=== PATIENT | male | born 1930 | race Caucasian/White ===

== ENCOUNTER 2016-09-21 06:16 | Day surgery (SDC) | payer OTHER ==
[2016-09-20 16:55] VITALS: BMI 21.9
[2016-09-21] MEDS ORDERED: SUCCINYLCHOLINE CHLORIDE 200 MG/10 ML VIAL ONE (07:35)
[2016-09-21] MEDS ORDERED: PROPOFOL 20 ML ONE (07:35)
[2016-09-21] MEDS ORDERED: VASOPRESSIN 20 UNITS/ML VIAL IV ONE (07:41)
[2016-09-21] MEDS ORDERED: METHYLENE BLUE 1% 10 MG/1 ML VIAL ONE (07:54)
[2016-09-21] MEDS ORDERED: GENTAMICIN SO4 80 MG/2 ML VIAL ONE (08:11)
[2016-09-21] MEDS ORDERED: LIDOCAINE HCL 2% (20ML MULTI-DOSE VIAL) NR ONE (08:12)
--- NOTE | 2016-09-21 08:12 | OP ---
Operative Note - Note: Pre-Operative Diagnosis: urinary incontinence failed medical therapy. CAP S/P BRACHY TX. EZRA Operation: male sling , copoplast, cysto Post-Operative Diagnosis: Same as Pre-op (FIXATED URETHRA SECONDARY TO POOR COAPTATION SEC TO RADIATION) Surgeon: Matthew Pablo Anesthesia: General Operative Report Dictated: Yes
[2016-09-21] MEDS ORDERED: GENTAMICIN SO4 80 MG/2 ML VIAL IVPB ONE (08:13)
[2016-09-21] MEDS ORDERED: ceFAZolin SODIUM 1 GM VIAL ONE (08:29)
[2016-09-21] MEDS ORDERED: ceFAZolin SODIUM 1 GM VIAL IVPB ONE (08:31)
--- NOTE | 2016-09-21 08:45 | HP ---
DATE OF ADMISSION: DATE OF DICTATION: 09/21/2016 HISTORY OF PRESENT ILLNESS: Patient is an 85-year-old male with stress urinary incontinence. Patient does have history of localized prostate cancer treated with radiation seeds as well as external beam radiation therapy 12 years ago. He has been having stress incontinence, using 4 to 6 pads a day. He denies any dysuria or hematuria. 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 Patient does have history of diabetes. He denies any other medical problems. He denies tobacco, ethanol, allergies. He denies any open surgical procedures. PHYSICAL EXAMINATION: General: Revealed a well-developed adult male in no apparent distress. Abdomen: Soft. There was no CVA tenderness. No hepatosplenomegaly was noted. Genitalia: Atraumatic. Phallus appears to be excoriated with a fungal rash secondary to chronic urinary incontinence. Testes are atrophic. Prostate is 1+, firm, benign, and nontender. Perineal sensation is present. Bulbocavernosus reflex is brisk. Saddle sensation is not diminished. LABORATORY DATA: Residual urine was 120 mL. Urinalysis revealed a specific gravity of 1015, pH 5.5, negative blood and nitrites. PLAN: Patient was given the option of an internal male urethral sling. He has accepted that. Will go for a male sling. MARTHA RYAN M.D. [id number]
[2016-09-21] MEDS ORDERED: DEXTROSE 5%-0.45% SALINE 1,000 ML IV SCH (10:15)
[2016-09-21] MEDS ORDERED: ACETAMINOPHEN INJECTION 100 ML IVPB ONE (10:51)
[2016-09-21] MEDS ORDERED: ONDANSETRON 4 MG/2 ML VIAL IVPUSH PRN (11:01)
[2016-09-21] MEDS ORDERED: HYDROmorphone HCL CARPU-JECT 1 MG/1 ML DISP.SYRIN IVPUSH PRN (11:01)
[2016-09-21] MEDS ORDERED: oxyCODONE HCL 5 MG TABLET PO PRN (11:01)
[2016-09-21] MEDS ORDERED: ACETAMINOPHEN 1000 MG/100 ML VIAL (NON FORMULARY) IVPB ONE (11:02)
[2016-09-21] MEDS ORDERED: HYDROmorphone HCL CARPU-JECT 2 MG/1 ML DISP.SYRIN IM ONE (11:15)
[2016-09-21] MEDS ORDERED: CEPHALEXIN MONOHYDRATE 500 MG CAPSULE (UD) PO SCH (12:00)
--- NOTE | 2016-09-21 13:08 | OP ---
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 OPERATIVE PROCEDURE: Insertion of a Coloplast male sling. ANESTHESIA: General. DESCRIPTION OF PROCEDURE: Under above stated anesthesia, patient was prepped and draped in the usual sterile manner. He was placed in the exaggerated dorsal lithotomy position. A perineal incision was made. This was carried down through skin and subcutaneous tissue. The rectourethralis muscles were dissected off the bulbous urethra. The penile body was then dissected off the posterior rectal wall, and an edge of 3 cm was obtained by freeing the rectum from the posterior urethra using both blunt and sharp dissection. The pubic bone on the right and left sides of the bulbous urethra was identified. The Coloplast mesh was then placed flat over the entire bulbous urethra. The lower wings were then brought out, the obturator canals on the right and left side. The upper wings of the flap were brought out suprapubically in front of the pubic bone. No. 1 Prolene sutures were then placed into the pubic bone and towards the middle of the graft and tied down snugly, thereby compressing the bulbous urethra. The Humphries catheter was placed at the meatus, and the balloon was inflated with 2 mL of saline. A water bottle at 75 cm above the patient was placed, and fluid was drained into the Humphries. On tying the Prolene sutures, the drip stops indicative of an increase in outlet resistance. Two Prolene No. 1 sutures were placed on the right pubic bone connected to the sling, and two were placed on the left pubic bone and connected to the sling. No evidence of leakage was noted. A cystoscopy was performed, and this revealed elevation of the bulbous urethra. The bladder revealed no pathology. Ureteral orifices were within normal limits with efflux of clear urine. The bladder was emptied and the scope was removed. The perineal incision was then irrigated with antibiotic solution and closed in 3 layers of 3-0 Vicryl suture ligatures. The skin was closed with iris. Pressure dressing was applied. The wound was also infiltrated with for long-term analgesia. The patient tolerated the procedure well. He returned to the recovery room in good condition. MARTHA RYAN M.D. [id number]
[2016-09-21 16:16] VITALS: BP 118/68; PULSE 77; TEMP 98.2
== END 2016-09-21 16:05 | disposition home or self-care (01) ==
LOC: JASU-SURG 06:16
PROVIDERS: ATTEND Urology
PROC: 0TSD0ZZ Reposition Urethra, Open Approach (ICD-10-PCS; principal; 2016-09-21 08:00)
DX: N39.3 Stress incontinence (female) (male) (principal); Z85.46 Personal history of malignant neoplasm of prostate
CPT/HCPCS: 87086; 94760

== ENCOUNTER 2018-12-06 13:33 | Emergency (ER) | payer OTHER ==
[2018-12-06 13:58] VITALS: TEMP 97.5; BMI 21.0
[2018-12-06] MEDS ORDERED: SODIUM CHLORIDE 1,000 ML IV STA (13:59)
--- NOTE | 2018-12-06 14:09 | PDOC ---
History of Present Illness - General Chief Complaint: Weakness Stated Complaint: WEAKNESS Time Seen by Provider: 12/06/18 14:09 History Source: Patient, Family Exam Limitations: No Limitations - History of Present Illness Initial Comments: 12/06/18 15:27 88 year old male with PMH HTN, HLD, DM, stress urinary incontinence, prostate cancer (s/p seeding), COPD, GERD BIBA to ED for increased lethargy since awaking this morning. Per family pt was awake until 0200 today with the family, was drinking ETOH (1 beer) and then took his nightly Buspirone 5 mg. Per family pt was sleeping in bed, awoke around 0400 and as he was trying to get out of bed he was unable to collateral clerk the floor and fell onto the ground. Fall was witnessed by daughter, who stated to the family that the patient did not hit his head/vomit/lose consciousness. Pt compained of low back pain, but they thought he was just tired, and so they did not bring him to the Emergency Department. Family reported that by 0100 pt was still very tired, so they decided to bring him to the Emergency Department, and upon arrival he was back to his baseline. Past History - Past Medical History Allergies/Adverse Reactions: Allergies Allergy/AdvReac Type Severity Reaction Status Date / Time No Known Drug Allergies Allergy Verified 12/06/18 13:56 Home Medications: Ambulatory Orders Sertraline HCl [Zoloft -] 100 mg PO DAILY 03/24/15 metFORMIN HCL [Metformin HCl] 1,000 mg PO BID 03/24/15 Amlodipine Besylate 5 mg PO DAILY 12/06/18 Atorvastatin Ca [Lipitor] 10 mg PO HS 12/06/18 Buspirone HCl [Buspar -] 5 mg PO BID 12/06/18 Dronabinol 5 mg PO BID 12/06/18 Ferrous Sulfate 325 mg PO TID 12/06/18 Finasteride [Proscar -] 5 mg PO DAILY 12/06/18 Latanoprost 0.005% Eye Drops [Xalatan 0.005% Eye Drops -] 1 drop OU HS 12/06/18 Omeprazole/Sodium Bicarbonate [Omeprazole-Bicarb 40-1,100 Cap] 40 - 1,100 cap PO DAILY 12/06/18 Anemia: No Asthma: No Cancer: No Cardiac Disorders: (DENIES STENT) CVA: No COPD: No CHF: No Dementia: No Diabetes: Yes GI Disorders: No Disorders: No HTN: Yes Hypercholesterolemia: Yes Liver Disease: No Psychiatric Problems: Yes (Anxiety) Seizures: No Thyroid Disease: No - Surgical History Abdominal Surgery: Yes (HERNIA REPAIR) Appendectomy: No Cardiac Surgery: No Cholecystectomy: No Lung Surgery: No Neurologic Surgery: No Orthopedic Surgery: Yes (LEFT KNEE) - Suicide/Smoking/Psychosocial Hx Smoking History: Never smoked Have you smoked in the past 12 months: No Information on smoking cessation initiated: No Hx Alcohol Use: No Drug/Substance Use Hx: No Substance Use Type: None Hx Substance Use Treatment: No Review of Systems - Review of Systems Able to Perform ROS?: Yes Comments:: 12/06/18 15:16 General: denied fever, chills, generalized weakness. HEENT: denied sore throat, rhinorrhea, ear pain. Heart: denied chest pain, palpitations, syncope, diaphoresis. Respiratory: denied shortness of breath, cough, sputum production, hemoptysis. Abdomen: denied abdominal pain, nausea, vomiting, diarrhea, constipation, blood in stool. : denied dysuria, increased urinary frequency, hematuria, urinary incontinence , flank pain. Back: admitted to back pain. Musculoskeletal: denied joint pain, muscle pain, joint swelling. Neurological: admitted to AMS. denied headache, dizziness, numbness, tingling, weakness. Skin: denied rash, laceration, abrasion. *Physical Exam - Vital Signs Last Vital Signs Temp Pulse Resp BP Pulse Ox 97.5 F L 68 17 135/65 98 12/06/18 13:49 12/06/18 13:49 12/06/18 13:49 12/06/18 13:49 12/06/18 13:49 - Physical Exam Comments: 12/06/18 15:17 Constitutional: Well-nourished, Well-developed, appearing stated age. HEENT: head is normocephalic, atraumatic. EOMI. PERRLA. no scalp hematoma. no racoon eyes, no garay sign. Neck: supple. Full ROM. no midline c-spine tenderness. Heart: systolic murmur. regular rhythm. Lungs: clear to auscultation bilaterally. no crackles, rhonchi or wheezing. no stridor. Abdomen: soft, nontender. normal bowel sounds. no rebound, guarding, masses. Back: no midline T-spine or L-spine tenderness to palpation. Extremities: peripheral pulses intact. no lower extremity edema. Neurological: CN 2-12 grossly intact. moves all four extremities. Psych: awake, alert, oriented x3. follows commands. answers questions appropriately. ED Treatment Course - LABORATORY CBC & Chemistry Diagram: 12/06/18 14:10 12/06/18 14:10 Medical Decision Making - Medical Decision Making 88 year old male with above PMH BIBA to ED for increased lethargy/AMS - which has since resolved - s/p drinking ETOH, staying up until 0200 today and taking Buspirone 5 mg. Pt received 1L normal saline en route via EMS. Initial Vital Signs Temp Pulse Resp BP Pulse Ox 97.5 F L 68 17 135/65 98 12/06/18 13:49 12/06/18 13:49 12/06/18 13:49 12/06/18 13:49 12/06/18 13:49 Afebrile. No tachycardia. No tachypnea. No hypotension. Mild hypertension. No hypoxia on room air. Labs ordered: CBC, CMP, troponin Imaging ordered: CXR, pelvis XR, lumbar spine XR, CT noncontrast Medications ordered: none EKG performed at 1347: rate 67, regular rhythm, normal axis, 1st degree AV block , QTc 420, no acute ST changes. CBC WBC 7.8 K/mm3 (4.0-10.0) 12/06/18 14:10 RBC 4.63 M/mm3 (4.00-5.60) 12/06/18 14:10 Hgb 12.1 GM/dL (11.7-16.9) 12/06/18 14:10 Hct 36.6 % (35.4-49) 12/06/18 14:10 MCV 79.2 fl (80-96) L 12/06/18 14:10 MCH 26.2 pg (25.7-33.7) 12/06/18 14:10 MCHC 33.1 g/dl (32.0-35.9) 12/06/18 14:10 RDW 14.9 % (11.9-15.9) 12/06/18 14:10 Plt Count 198 K/MM3 (134-434) 12/06/18 14:10 MPV 6.3 fl (7.5-11.1) L 12/06/18 14:10 Absolute Neuts (auto) 5.7 K/mm3 (1.5-8.0) 12/06/18 14:10 Neutrophils % 72.4 % (42.8-82.8) 12/06/18 14:10 Lymphocytes % 15.3 % (8-40) 12/06/18 14:10 Monocytes % 9.8 % (3.8-10.2) 12/06/18 14:10 Eosinophils % 2.2 % (0-4.5) 12/06/18 14:10 Basophils % 0.3 % (0-2.0) 12/06/18 14:10 Nucleated RBC % 0 % (0-0) 12/06/18 14:10 No leukocytosis. No anemia. CMP Sodium 143 mmol/L (136-145) 12/06/18 14:10 Potassium 4.2 mmol/L (3.5-5.1) 12/06/18 14:10 Chloride 113 mmol/L (98-107) H 12/06/18 14:10 Carbon Dioxide 23 mmol/L (21-32) 12/06/18 14:10 Anion Gap 6 MMOL/L (8-16) L 12/06/18 14:10 BUN 19.6 mg/dL (7-18) H 12/06/18 14:10 Creatinine 0.8 mg/dL (0.55-1.3) 12/06/18 14:10 Est GFR (CKD-EPI)AfAm 93.09 12/06/18 14:10 Est GFR (CKD-EPI)NonAf 80.32 12/06/18 14:10 Random Glucose 120 mg/dL (74-106) H 12/06/18 14:10 Calcium 8.1 mg/dL (8.5-10.1) L 12/06/18 14:10 Magnesium 1.9 mg/dL (1.8-2.4) 12/06/18 14:10 Total Bilirubin 0.3 mg/dL (0.2-1) 12/06/18 14:10 AST 18 U/L (15-37) 12/06/18 14:10 ALT 27 U/L (13-61) 12/06/18 14:10 Alkaline Phosphatase 73 U/L (45-117) 12/06/18 14:10 Creatine Kinase 91 U/L (26-308) 12/06/18 14:10 Troponin I < 0.02 ng/ml (0.00-0.05) 12/06/18 14:10 Total Protein 6.6 g/dl (6.4-8.2) 12/06/18 14:10 Albumin 3.4 g/dl (3.4-5.0) 12/06/18 14:10 No electrolyte abnormalities. No NONI. No transaminitis. Troponin wnl. 12/06/18 16:[address] Schultz's view: no obvious rib fractures. no infiltrate. no large pneumothorax. -Pending official report Pelvis XR my and Dr. Schultz's view: no fracture. no dislocation. bone demineralization. bone spurs. -Pending official report Lumbar spine XR mr and Dr. Schultz's view: no fracture. no dislocation. -Pending official report 12/06/18 18:32 CT head noncontrast showed no acute pathology. Pt back at baseline per family. Pt discharged. 12/08/18 06:39 Follow up: Official CXR, pelvis, and lumbar spine report: Single view AP portable chest Trauma with fall Degenerative changes in the shoulder No rib fracture or pneumothorax No infiltrate, mass or effusion in the lungs Impression: No infiltrates or edema in the lungs, no acute changes noted Single view pelvis Trauma with fall No fracture, dislocation or focal bony lesion Mild degenerative change hip joints Impression: No evidence of acute fracture or dislocation in the pelvis Lumbar spine 3 views Trauma with fall Tiny punctate calcifications overlie the left kidney, correlate for nonobstructive nephrolithiasis or obstructive lithiasis in the right clinical setting, follow- up with ultrasound or CT if clinically warranted. Retained fecal material in the colon Atherosclerotic calcifications aorta with no spondylolysis or spondylolisthesis. No definite acute compression fracture or bone destruction with normal sacrum and sacrococcygeal segments Impression: No definite acute compression fracture, if clinically symptomatic consider follow-up CT imaging for complete assessment. Reported By: Hernando Mcdonald MD 12/07/18 1304 *DC/Admit/Observation/Transfer Diagnosis at time of Disposition: Fall - Discharge Dispostion Disposition: HOME Condition at time of disposition: Improved Decision to Admit order: No - Referrals Referrals: Sang Martínez MD [Primary Care Provider] - - Patient Instructions Additional Instructions: You were seen today for a fall. Your X-rays showed no fractures. Your head CT was normal. Your lab work was normal. Do not drink alcohol. Follow up with your primary care doctor within 3 days. Your care is not complete until you follow up. Bring all paperwork given to you today to your appointment. Return to the Emergency Department for change in mental status, weakness, numbness, tingling, changes to speech, fever, chest pain, shortness of breath, increasing abdominal pain, vomiting or any other new, worsening or concerning symptoms. - Post Discharge Activity
[2018-12-06 14:26] LABS: BASO % 0.3 % (0-2.0); EOS % 2.2 % (0-4.5); HEMATOCRIT 36.6 % (35.4-49); HEMOGLOBIN 12.1 GM/dL (11.7-16.9); LYMPH % 15.3 % (8-40); MCH 26.2 pg (25.7-33.7); MCHC 33.1 g/dl (32.0-35.9); MEAN CELL VOLUME 79.2 fl (80-96); MEAN PLT VOLUME 6.3 fl (7.5-11.1); MONO % 9.8 % (3.8-10.2); NEUT % 72.4 % (42.8-82.8); PLATELET COUNT 198 K/MM3 (134-434); RBC 4.63 M/mm3 (4.00-5.60); RDW 14.9 % (11.9-15.9); WHITE BLOOD COUNT 7.8 K/mm3 (4.0-10.0)
[2018-12-06 14:46] LABS: ALBUMIN 3.4 g/dl (3.4-5.0); ALK PHOS 73 U/L (45-117); ANION GAP 6 MMOL/L (8-16); BILIRUBIN,TOTAL 0.3 mg/dL (0.2-1); BLOOD UREA NITROGEN 19.6 mg/dL (7-18); CALCIUM 8.1 mg/dL (8.5-10.1); CHLORIDE 113 mmol/L (98-107); CO2 23 mmol/L (21-32); CREATININE 0.8 mg/dL (0.55-1.3); GLUCOSE,RANDOM 120 mg/dL (74-106); MAGNESIUM 1.9 mg/dL (1.8-2.4); POTASSIUM 4.2 mmol/L (3.5-5.1); SGOT/AST 18 U/L (15-37); SGPT/ALT 27 U/L (13-61); SODIUM 143 mmol/L (136-145); TOT PROT 6.6 g/dl (6.4-8.2)
[2018-12-06] MEDS ORDERED: ACETAMINOPHEN 325 MG TABLET (FP) PO ONE (16:27)
[2018-12-06] MEDS ORDERED: ACETAMINOPHEN 325 MG TABLET (FP) ONE (16:35)
[2018-12-06 16:42] VITALS: BP 149/71; PULSE 78
--- NOTE | 2018-12-06 16:57 | PDOC ---
Documentation entered by Shira Atkins SCRIBE, acting as scribe for April Schultz MD. April Schultz MD: This documentation has been prepared by the Milly clement Mackenzie, SCRIBE, under my direction and personally reviewed by me in its entirety. I confirm that the documentation accurately reflects all work , treatment, procedures, and medical decision making performed by me. Attending Attestation - Resident Resident Name: Mary Pillai - ED Attending Attestation I have performed the following: I have examined & evaluated the patient, The case was reviewed & discussed with the resident, I agree w/resident's findings & plan - HPI HPI: Patient is an 88 year old male with a significant past medical history of DM, HLD, HTN, prostate cancer S/P seeding, GERD, COPD, and stress urinary incontinence came in via EMS presenting to the ED with increased lethargy since this morning. Patients family states patient was up until 2AM this morning drinking alcohol with family when he took 5mg of his Buspirone after having approximately 1 beer. Patients family states around 4AM patient woke up, struggled to get out of bed and fell on the floor. Patients daughter states witnessing the fall and denies any strike to the head, LOC, or vomiting. Patient has since been tired all day prompting family to bring him in today. Patient also notes left lower back pain and despite feeling tired earlier today upon arrival he feels awake and attentive. Denies fever, chills, chest pain, SOB, palpitation, dizziness,N, V, D, abdominal pain, bladder and bowel problems, leg swelling, No sick contacts or travel. No new changes in medications. Allergies: NKDA Past Medical History: As per resident note Social history: Lives with family. Social ETOH use. No tobacco or drug use. Surgical history: As per resident note. Meds: as documented in EMR PMD: Dr. Martínez 12/06/18 16:51 - Physicial Exam PE: 12/06/18 16:59 Agree with the resident's HPI and PE as documented in the electronic medical record. GCS 15, NAD, well appearing, EOMI, PERRL, nl conjunctiva, anicteric; neck supple. lungs clear, RRR, soft murmur, abdomen soft nontender. Back nontender. COVARRUBIAS x4, no focal neuro deficits. No peripheral edema. normal color for ethnicity , WWP. gait stable, ambulatory. 12/06/18 18:53 - Medical Decision Making 12/06/18 16:58 See HPI for details. Prior notes reviewed, including admissions, discharges and consultations. Vital signs reviewed, wnl. Trauma ddx: ICH, SDH/ EDH, C spine injury/strain, extremity sprain/fracture, pelvis fracture. MSK contusion, msk spasms. Rib fractures. Clinically doubt Intra abdominal and thoracic injuries/bleed extremity xray, lumbar xray with normal alignment, degenerative changes, no acute fx or mal-alignment. pelvis with degenerative bony deformities, no acute fx or dislocation of hip. 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 analgesia ambulatory, neuro intact, well appearing, no prodromal sx, asymptomatic and comfortable with discharge. no pain or symptoms cautioned on medication and alcohol side effect and sedating risk, fall risk. avoid drinking and taking certain meds for polypharmacy effects. no urinary sx to suggest infection. Pt to be discharged in stable condition. Patient and family made aware of clinical impression, treatment recommendations and disposition plan, return precautions discussed (including but not limited to new or persistent/worsening symptoms, pain, fevers, or signs of infection, chest pain, respiratory distress , inability to tolerate oral intake, dehydration, syncope, or neurologic changes ). Follow up with PMD follow up information provided, take medications as instructed for duration of time. continue with supportive care, avoid triggers and precipitants. All questions answered to patient's satisfaction and expressed understanding and comfort with this. At the time of discharge, the patient is alert, clinically improved, tolerating po and verbalizes understanding of instructions, satisfied with the care received and felt comfortable with the plan. Patient does not suffer from an acute life- threatening medical condition at this time and is safe for outpatient follow- up. 12/06/18 17:39 12/06/18 18:53 Heart Score/ECG Review #1 ECG reviewed & interpreted by me at: 13:45 General ECG Interpretation: Sinus Rhythm, Normal Rate, Normal Intervals, No acute ischemic changes Compared to previous ECG there are: No significant change 12/06/18 16:57 EKG normal sinus rhythm at 67 bpm, 1st degree AV block, narrow QRS, ST and T wave segments and morphology normal.
--- NOTE | 2018-12-07 13:13 | EKG ---
Test Reason : Blood Pressure : / mmHG Vent. Rate : 067 BPM Atrial Rate : 067 BPM P-R Int : 234 ms QRS Dur : 088 ms QT Int : 398 ms P-R-T Axes : 057 045 058 degrees QTc Int : 420 ms SINUS RHYTHM WITH 1ST DEGREE A-V BLOCK OTHERWISE NORMAL ECG WHEN COMPARED WITH ECG OF 01-MAR-2016 12:18, [place] INTERVAL HAS INCREASED Confirmed by FRANCISCO DELANEY MD ([id number]) on 12/07/2018 1:12:32 PM Referred By: Confirmed By:FRANCISCO DELANEY MD
== END 2018-12-06 19:22 | disposition home or self-care (01) ==
LOC: JER 13:33
DX: M54.5 Low back pain (principal); I10 Essential (primary) hypertension; E78.5 Hyperlipidemia, unspecified; E11.9 Type 2 diabetes mellitus without complications; Z79.84 Long term (current) use of oral hypoglycemic drugs; J44.9 Chronic obstructive pulmonary disease, unspecified; K21.9 Gastro-esophageal reflux disease without esophagitis; F41.9 Anxiety disorder, unspecified; Z85.46 Personal history of malignant neoplasm of prostate
CPT/HCPCS: 36415; 70450-TC; 71045-TC-FY; 72100-TC-FY; 72170-TC-FY; 80053; 82550; 83735; 84484; 85025; 93005; 93010; 99282-25; J7030

== ENCOUNTER 2020-03-27 18:18 | Emergency (ER) | payer OTHER ==
[2020-03-27 18:32] VITALS: TEMP 99.2; BMI 18.8
--- OUTSIDE RECORDS SUMMARY | 2020-03-27 18:36 | XMS ---
:1930 Author Organization [facility] Care Team Providers Name Role Phone [facility], MHAW9 Unavailable Unavailable PATRICIA YOUNG Unavailable Unavailable Jerald Vazquez Unavailable [phone] ARANZA NAILS Unavailable Unavailable Randolph-David Alta Unavailable [phone] Randolph-Hernandez, Lata Unavailable [phone] Re-disclosure Warning The records that you are about to access may contain information from federally- assisted alcohol or drug abuse programs. If such information is present, then the following federally mandated warning applies: This information has been disclosed to you from records protected by federal confidentiality rules (42 CFR part 2). The federal rules prohibit you from making any further disclosure of this information unless further disclosure is expressly permitted by the written consent of the person to whom it pertains or as otherwise permitted by 42 CFR part 2. A general authorization for the release of medical or other information is NOT sufficient for this purpose. The Federal rules restrict any use of the information to criminally investigate or prosecute any alcohol or drug abuse patient.The records that you are about to access may contain highly sensitive health information, the redisclosure of which is protected by Article 27-F of the [place] State Public Health law. If you continue you may haveaccess to information: Regarding HIV / AIDS; Provided by facilities licensed or operated by the [facility] Office of Mental Health; or Provided by the [facility] Office for People With Developmental Disabilities. If such information is present, then the following [facility] mandated warning applies: This information has been disclosed to you from confidential records which are protected by state law. State law prohibits you from making any further disclosure of this information without the specific written consent of the person to whom it pertains, or as otherwise permitted by law. Any unauthorized further disclosure in violation of state law may result in a fine or group home sentence or both. A general authorization for the release of medical or other information is NOT sufficient authorization for further disclosure. Encounters Encounter Providers Location Date Indications Data Source(s ) Outpatient Attender: PATRICIA Henriquez 03/08/2020 [facility] 09:56:00 AM Tara Menaitter: PATRICIA GOMEZReferrer: PATRICIA GOMEZ Outpatient Attender: PATRICIA Henriquez 01/26/2020 [facility] 08:07:00 AM Tara Menaitter: PATRICIA GOMEZReferrer: PATRICIA GOMEZ Outpatient Attender: MHAW9 08/04/2019 [facility] ([facility] 01:06:57 PM [facility] elisabeth) EST Patient admitted. Attender: [facility] 07/09/2019 [place] [facility]12[facility] 05:12:00 PM EST Attender: [facility] 06/25/2019 [place] ([facility] 09:16:00 AM EST [facility] sephs Medical 06/25/2019 [facility]) 09:16:00 AM EST Outpatient Attender: ARANZA Henriquez 06/23/2019 Anshul CHATMANAdmitter: ARANZA 09:12:00 AM EST [facility] LANDON CHATMANReferrer: ARANZA CHATMAN Attender: Jerald [facility] 06/23/2019 [place] ([facility] 09:12:00 AM EST [facility] 06/23/2019 [facility]) 09:12:00 AM EST 06/23/2019 Wes 12:00:00 AM EST Medical C enter Attender: [facility] 04/13/2019 [place] ([facility] 11:39:00 AM EDT - [facility] 04/13/2019 [place]) 11:39:00 AM EDT Attender: [facility] 02/23/2019 [place] ([facility] 11:04:00 AM EDT [facility] 02/23/2019 [facility]) 11:04:00 AM EDT Medications Medication Brand Start Product Dose Route Administrative Pharmacy [facility] Indications Reaction Description Data Name Date Form Instructions Instructions Source(s) Sertraline Zoloft .00 ORAL active Sertrali ne NEXTGEN 50 MG Oral 50 mg 2019 {tbl} 50 MG Oral ( [facility] Tablet tablet 12:00: Tablet Wes [Zoloft] 00 AM [Zoloft] Medica l Zoloft 50 [facility]) mg tablet Sertraline Zoloft ORAL complet Sertral ine NEXTGEN 100 MG Oral 100 mg 2019 {tbl} ed 100 MG Ora l ([facility] Tablet tablet 12:00: Tablet Wes [Zoloft] 00 AM [Zoloft] Medica l Zoloft 100 [facility] Center) mg tablet Medication administered onsite buspirone buspirone 5 06/25/2019 1 {tbl} ORAL active take 1 NEXTGEN hydrochloride 5 mg tablet 12:00:00 AM tablet by ([facility] MG Oral Tablet EST oral route Wes buspirone 5 mg 2 times Me dical tablet every day Center) for anxiety Sertraline 100 Zoloft 100 04/13/2019 1 {tbl} ORAL completed Sertraline NEXTGEN MG Oral Tablet mg tablet 12:00:00 AM 100 MG Oral (Saint [Zoloft] Zoloft EDT Tablet Cele sephs 100 mg tablet [Zoloft] Ne dical Center) buspirone buspirone 5 04/13/2019 1 {tbl} ORAL completed take 1 NEXTGEN hydrochloride 5 mg tablet 12:00:00 AM tablet by ([facility] MG Oral Tablet EDT oral route Wes buspirone 5 mg 2 times Me dical tablet every day [facility]) for anxiety Sertraline 100 Zoloft 100 12/29/2018 1 {tbl} ORAL completed Sertraline NEXTGEN MG Oral Tablet mg tablet 12:00:00 AM 100 MG Oral (Saint [Zoloft] Zoloft EDT Tablet Cele sephs 100 mg tablet [Zoloft] Ne dical [facility]) buspirone buspirone 5 12/29/2018 1 {tbl} ORAL completed take 1 NEXTGEN hydrochloride 5 mg tablet 12:00:00 AM tablet by ([facility] MG Oral Tablet EDT oral route Wes buspirone 5 mg 2 times Me dical tablet every day [facility]) for anxiety Insurance Providers Payer name Policy type Policy ID Covered Covered libertarian's Policy P garrison / Coverage libertarian ID relationship to Gutierrez Inf ormation type gutierrez MEDICAID [id number] SP [id number] MEDICARE [id number] SP [id number] 23 3 M [id number] 01 [id number] 23 3 W [id number] 01 [id number] MEDICAID OF [id number] 1 [id number] [place] [id number] 1 [id number] PART B [employer] W [id number] 01 [id number] 01 [id number] A Problems, Conditions, and Diagnoses Code Display Name Description Problem Type Effective Dates Data Source(s) M54.40 Lumbago with LUMBAGO WITH Diagnosis 03/08/2020 [facility] sciatica, SCIATICA, 09:56:00 AM EDT Medical C enter unspecified side UNSPECIFIED SIDE M25.559 Pain in PAIN IN Diagnosis 01/26/2020 [facility] unspecified hip UNSPECIFIED HIP 08:07:00 AM EDT [facility] Center R10.9 Unspecified UNSPECIFIED Diagnosis 06/23/2019 [facility] abdominal pain ABDOMINAL PAIN 09:12:00 AM [facility] Results ID Date Data Source [id number] 12/21/2019 12:00:00 AM EDT [facility] Name Value Range Interpretation Code Description Data [facility] rce(s) Supporting Document(s ) 2019-nCoV [place] RNA XXX JORGE+probe- Imp This lab was ordered by [facility] and reported by [employer] ID Date Data Source Liver 06/23/2019 09:43:00 AM [facility] Profile.[id number] Name Value Range Interpretation Description Data Sup porting Code Source(s) Document(s ) Aspartate 17-59 <content [facility] aminotransferase styleCode="Bold"> Anjel hs [Enzymatic Aspartate Medical activity/volume] Aminotransferase Center in Serum or Plasma (AST) </content>30 IU/L<content styleCode="Italic s"> (17-59 IU/L)</content> Bilirubin.total 0.2-1.3 <content Saint [Mass/volume] in styleCode="Bold"> Anjel hs Serum or Plasma Bilirubin Total Medical </content>0.6 Center MG/DL<content styleCode="Italic s"> (0.2-1.3 MG/DL)</content> Alanine 7-50 <content [facility] aminotransferase styleCode="Bold"> Anjel hs [Enzymatic Alanine Medical activity/volume] Aminotransferase Center in Serum or Plasma (ALT) </content>49 IU/L<content styleCode="Italic s"> (7-50 IU/L)</content> Albumin 3.5-5.0 <content [facility] [Mass/volume] in styleCode="Bold"> Anjel hs Serum or Plasma Albumin Medical </content>4.4 Center G/DL<content styleCode="Italic s"> (3.5-5.0 G/DL)</content> Alkaline 38-126 <content [facility] phosphatase styleCode="Bold"> Wes [Enzymatic Alkaline Medical activity/volume] Phosphatase (ALP) Cente r in Serum or Plasma </content>74 IU/L<content styleCode="Italic s"> (38-126 IU/L)</content> ID Date Data Source HematologyRou.[id number] 06/23/2019 09:43:00 AM EST Anshul nt [facility] 0500 Name Value Range Interpretation Description Data Sup porting Code Source(s) Document(s ) Hematocrit 41.0-53. <content [facility] [Volume 0 styleCode="Bold Wes Fraction] of ">Hematocrit Medical Blood by </content>42.0 Center Automated count %<content styleCode="Ital ics"> (41.0-53.0 %)</content> Erythrocyte mean 80.0-100 <content [facility] corpuscular .0 styleCode="Bold Wes volume [Entitic ">Mean Medical volume] by Corpuscular Center Automated count Volume </content>77.8 FL<content styleCode="Ital ics"> (80.0-100.0 FL)</content> Leukocytes 4.4-11.0 Above high <content Saint [#/volume] in normal styleCode="Bold Wes Blood by ">White Blood Medical Automated count Cell Count Center </content>12.04 KCUMM H<content styleCode="Ital ics"> (4.4-11.0 KCUMM)</content > Hemoglobin 13.5-17. <content [facility] [Mass/volume] in 5 styleCode="Bold Wes Blood ">Hemoglobin Medical </content>14.2 Center G/DL<content styleCode="Ital ics"> (13.5-17.5 G/DL)</content> Erythrocytes 4.4-5.9 <content Saint [#/volume] in styleCode="Bold Wes Blood by ">Red Blood Medical Automated count Cell Count Center </content>5.40 MCUMM<content styleCode="Ital ics"> (4.4-5.9 MCUMM)</content > Platelets 130-400 <content Saint [#/volume] in styleCode="Bold Wes Blood by ">Platelet Medical Automated count Count Center </content>263 KCUMM<content styleCode="Ital ics"> (130-400 KCUMM)</content > Erythrocyte mean 32.0-37. <content [facility] corpuscular 0 styleCode="Bold Wes hemoglobin ">Mean Corpus. Medical concentration Hgb Center [Mass/volume] by Concentration Automated count (MCHC) </content>33.8 G/DL<content styleCode="Ital ics"> (32.0-37.0 G/DL)</content> Erythrocyte 11.5-14. <content [facility] distribution 5 styleCode="Bold Wes width [Ratio] by ">Red Cell Medical Automated count Distribution Center Width </content>13.6 %<content styleCode="Ital ics"> (11.5-14.5 %)</content> Erythrocyte mean 26.0-34. <content [facility] corpuscular 0 styleCode="Bold Wes hemoglobin ">Mean Medical [Entitic mass] Corposcular Center by Automated Hemoglobin count </content>26.3 PG<content styleCode="Ital ics"> (26.0-34.0 PG)</content> Platelet mean 8.0-11.0 <content [facility] volume [Entitic styleCode="Bold Wes volume] in Blood ">Mean Platelet Medical by Automated Volume Center count </content>8.9 FL<content styleCode="Ital ics"> (8.0-11.0 FL)</content> UNK 0 <content Saint styleCode="Bold Wes ">Nucleated Red Medical Blood Cell Center </content>0.0 /100<content styleCode="Ital ics"> (0 /100)</content> UNK 0.0 <content Saint styleCode="Bold Wes ">Nucleated Red Medical Blood Cell Center Count </content>0.00 KCUMM<content styleCode="Ital ics"> (0.0 KCUMM)</content > ID Date Data Source GFR(Creatinine).[id number] 06/23/2019 09:43:00 AM [facility] 0-0500 Name Value Range Interpretation Code Description Data Kasandra rce(s) Supporting Document(s ) UNK > 60 <content [facility] Wes styleCode="Bold"> Medical Cent er EGFR </content>75 GFR<content styleCode="Italic s"> (> 60 GFR)</content> ID Date Data Source Genetics.[id number] 06/23/2019 09:43:00 AM EST [facility] Name Value Range Interpretation Code Description Data Kasandra rce(s) Supporting Document(s ) UNK -<34 <content [facility] styleCode="Bold"> Medical Cent er Ca 19-9 </content><3 U/mL<content styleCode="Italic s"> (-<34 U/mL)</content> ID Date Data Source CHMROUTINECCDA.[id number] 06/23/2019 09:43:00 AM EST [facility] -0500 Name Value Range Interpretation Description Data Sup porting Code Source(s) Document(s ) UNK >= 1.0 <content Saint styleCode="[facility] ld">AG Ratio Medical </content>1.5 Center <content styleCode="It alics"> (>= 1.0 )</content> Carcinoembryonic Ag 0.0-2.5 <content [facility] [Mass/volume] in styleCode="[facility] Serum or Plasma ld">Carcinoem Medical bryonic Center Antigen </content>2.1 ng/mL<content styleCode="It alics"> (0.0-2.5 ng/mL)</deny nt> UNK 2.3-3.5 <content Saint styleCode="[facility] ld">Globulin Medical </content>3.0 Center G/DL<content styleCode="It alics"> (2.3-3.5 G/DL)</conten t> Protein 6.3-8.2 <content [facility] [Mass/volume] in styleCode="[facility] Serum or Plasma ld">Total Medical Protein Center </content>7.4 G/DL<content styleCode="It alics"> (6.3-8.2 G/DL)</conten t> ID Date Data Source [facility].[id number] 06/23/2019 09:43:00 AM EST [facility] Name Value Range Interpretation Description Data Sup porting Code Source(s) Document(s ) Sodium 137-145 Below low <content Saint [Moles/volume] in normal styleCode="Bold"> [facility] phs Serum or Plasma Sodium Medical </content>135 Center MEQ/L L<content styleCode="Italic s"> (137-145 MEQ/L)</content> UNK 9-20 Above high <content Saint normal styleCode="Bold"> Wes BUN </content>34 Medical MG/DL H<content Center styleCode="Italic s"> (9-20 MG/DL)</content> Creatinine 0.5-1.3 <content [facility] [Mass/volume] in styleCode="Bold"> Anjel hs Serum or Plasma Creatinine Medical </content>1.0 Center MG/DL<content styleCode="Italic s"> (0.5-1.3 MG/DL)</content> Chloride 98-107 Below low <content [facility] [Moles/volume] in normal styleCode="Bold"> [facility] phs Serum or Plasma Chloride Medical </content>97 Center MEQ/L L<content styleCode="Italic s"> (98-107 MEQ/L)</content> Carbon dioxide, 22-30 <content [facility] total styleCode="Bold"> Wes [Moles/volume] in Carbon Dioxide Medical Serum or Plasma </content>28 Center MEQ/L<content styleCode="Italic s"> (22-30 MEQ/L)</content> Potassium 3.5-5.3 <content [facility] [Moles/volume] in styleCode="Bold"> [facility] phs Serum or Plasma Potassium Medical </content>4.7 Center MEQ/L<content styleCode="Italic s"> (3.5-5.3 MEQ/L)</content> Alanine 7-50 <content [facility] aminotransferase styleCode="Bold"> Anjel hs [Enzymatic Alanine Medical activity/volume] Aminotransferase Center in Serum or Plasma (ALT) </content>49 IU/L<content styleCode="Italic s"> (7-50 IU/L)</content> UNK > 60 <content [facility] styleCode="Bold"> Wes EGFR </content>75 Medical GFR<content Center styleCode="Italic s"> (> 60 GFR)</content> Aspartate 17-59 <content [facility] aminotransferase styleCode="Bold"> Anjel hs [Enzymatic Aspartate Medical activity/volume] Aminotransferase Center in Serum or Plasma (AST) </content>30 IU/L<content styleCode="Italic s"> (17-59 IU/L)</content> Calcium 8.4-10. <content [facility] [Mass/volume] in 2 styleCode="Bold"> Anjel hs Serum or Plasma Calcium Medical </content>10.0 Center MG/DL<content styleCode="Italic s"> (8.4-10.2 MG/DL)</content> Glucose 74-106 Above high <content Saint [Mass/volume] in normal styleCode="Bold"> Anjel hs Serum or Plasma Glucose Medical </content>322 Center MG/DL H<content styleCode="Italic s"> (74-106 MG/DL)</content> Albumin 3.5-5.0 <content [facility] [Mass/volume] in styleCode="Bold"> Anjel hs Serum or Plasma Albumin Medical </content>4.4 Center G/DL<content styleCode="Italic s"> (3.5-5.0 G/DL)</content> Bilirubin.total 0.2-1.3 <content [facility] [Mass/volume] in styleCode="Bold"> Anjel hs Serum or Plasma Bilirubin Total Medical </content>0.6 Center MG/DL<content styleCode="Italic s"> (0.2-1.3 MG/DL)</content> Alkaline 38-126 <content [facility] phosphatase styleCode="Bold"> Wes [Enzymatic Alkaline Medical activity/volume] Phosphatase (ALP) Cente r in Serum or Plasma </content>74 IU/L<content styleCode="Italic s"> (38-126 IU/L)</content> Procedure Patient Treatment Plan of Care Planned Activity Planned Date Details Description Data Source (s) Sertraline 50 MG Oral 06/25/2019 12:00:00 [facility] (Saint Tablet [Zoloft] AM [facility]) buspirone hydrochloride 5 06/25/2019 12:00:00 NEXTGEN ([facility] MG Oral Tablet AM [facility]) Sertraline 100 MG Oral 06/[facility]/2019 [facility]) buspirone hydrochloride 5 04/13/2019 12:00:00 NEXTGEN ([facility] MG Oral Tablet AM [facility]) Sertraline 100 MG Oral 04/13/2019 12:00:[facility]t [[facility]ft] AM [facility]) Sertraline 100 MG Oral 12/29/2018 12:00:[facility] Tablet [Zoloft] AM [facility]) buspirone hydrochloride 5 12/29/2018 12:00:00 NEXTGEN ([facility] MG Oral Tablet AM [facility])
--- NOTE | 2020-03-27 19:10 | PDOC ---
History of Present Illness - History of Present Illness Initial Comments: 89 YOM h/o diabetes, htn and multiple falls presents after mechanical fall this evening at home. Per patients son, patient was walking into the bathroom, tripped and fell hitting his head, left side including his hip. Denies LOC, denies light headedness and dizziness prior to falling. Says he has pain along left side including back and ribs but denies pain with inspiration or difficulty breathing. Did not taking anything for pain after the fall but took tylenol around 11am for pain associated with his restless leg syndrome. Denies CP, SOB, N/V/D, fever or chills. <Jorge Luis Zhu - Last Filed: 03/27/20 20:53> <Grace Agarwal - Last Filed: 03/28/20 00:32> - General Chief Complaint: Injury Stated Complaint: FALL Time Seen by Provider: 03/27/20 19:09 Past History - Medical History Anemia: No Asthma: No Cancer: No Cardiac Disorders: (DENIES STENT) CVA: No COPD: No CHF: No Dementia: No Diabetes: Yes GI Disorders: No Disorders: No HTN: Yes Hypercholesterolemia: Yes Liver Disease: No Psychiatric Problems: Yes (Anxiety) Seizures: No Thyroid Disease: No - Surgical History Abdominal Surgery: Yes (HERNIA REPAIR) Appendectomy: No Cardiac Surgery: No Cholecystectomy: No Lung Surgery: No Neurologic Surgery: No Orthopedic Surgery: Yes (LEFT KNEE) - Psycho-Social/Smoking History Smoking History: Unknown if ever smoked Have you smoked in the past 12 months: No - Substance Abuse Hx (Audit-C & DAST Scrn) How often the patient has a drink containing alcohol: Never Score: In Men: 4 or > Positive; In Women: 3 or > Positive: 0 Screen Result (Pos requires Nsg. Audit-10AR): Negative In the last yr the pt used illegal drug/Rx for NonMed reason: No Score: Yes response is considered Positive: 0 Screen Result (Positive result requires Nsg. DAST-10): Negative <Jorge Luis Zhu - Last Filed: 03/27/20 20:53> <Grace Agarwal - Last Filed: 03/28/20 00:32> - Medical History Allergies/Adverse Reactions: Allergies Allergy/AdvReac Type Severity Reaction Status Date / Time No Known Drug Allergies Allergy Verified 03/27/20 18:32 Home Medications: Ambulatory Orders metFORMIN HCL [Metformin HCl] 1,000 mg PO BID 03/24/15 Amlodipine Besylate 5 mg PO DAILY 12/06/18 Atorvastatin Ca [Lipitor] 10 mg PO HS 12/06/18 Buspirone HCl [Buspar -] 5 mg PO BID 12/06/18 Dronabinol 5 mg PO BID 12/06/18 Ferrous Sulfate 325 mg PO TID 12/06/18 Finasteride [Proscar -] 5 mg PO DAILY 12/06/18 Latanoprost 0.005% Eye Drops [Xalatan 0.005% Eye Drops -] 1 drop OU HS 12/06/18 Omeprazole/Sodium Bicarbonate [Omeprazole-Bicarb 40-1,100 Cap] 40 - 1,100 cap PO DAILY 12/06/18 *Physical Exam - Vital Signs Last Vital Signs Temp Pulse Resp BP Pulse Ox 99.2 F 93 H 16 193/86 H 98 03/27/20 18:29 03/27/20 18:29 03/27/20 18:29 03/27/20 18:29 03/27/20 18:29 - Physical Exam General Appearance: Yes: Nourished, Appropriately Dressed, Moderate Distress, Thin HEENT: positive: EOMI, MADELYN, Normal ENT Inspection, Normal Voice, Symmetrical, TMs Normal, Pharynx Normal Neck: positive: Trachea midline, Normal Thyroid Respiratory/Chest: positive: Lungs Clear, Normal Breath Sounds Cardiovascular: positive: Regular Rhythm, Regular Rate, S1, S2 Gastrointestinal/Abdominal: positive: Normal Bowel Sounds, Flat, Soft Musculoskeletal: positive: Other (patient is tender along left side, at ribs, and left flank) Extremity: positive: Normal Capillary Refill, Normal Inspection Integumentary: positive: Normal Color, Dry, Warm Neurologic: positive: pool nurse II-XII NML intact, Fully Oriented, Alert, Normal Mood/Affect, Normal Response, Motor Strength 5/5 <Jorge Luis Zhu - Last Filed: 03/27/20 20:53> - Vital Signs Last Vital Signs Temp Pulse Resp BP Pulse Ox 99.2 F 89 20 169/69 98 03/27/20 18:29 03/28/20 00:00 03/28/20 00:00 03/28/20 00:00 03/28/20 00:00 <Any,Grace - Last Filed: 03/28/20 00:32> ED Treatment Course - LABORATORY CBC & Chemistry Diagram: 03/27/20 20:19 03/27/20 20:19 <Jorge Luis Zhu - Last Filed: 03/27/20 20:53> - LABORATORY CBC & Chemistry Diagram: 03/27/20 20:19 03/27/20 20:19 - ADDITIONAL ORDERS Additional order review: Laboratory Results 03/27/20 20:19 Sodium 139 Potassium 4.3 Chloride 107 Carbon Dioxide 25 Anion Gap 7 L BUN 27.5 H Creatinine 0.9 Est GFR (CKD-EPI)AfAm 88.07 Est GFR (CKD-EPI)NonAf 75.99 Random Glucose 202 H Calcium 9.4 Total Bilirubin 0.2 AST 27 ALT 29 Alkaline Phosphatase 105 Total Protein 7.5 Albumin 3.8 03/27/20 20:19 RBC 4.56 MCV 79.3 L MCHC 33.8 RDW 14.4 MPV 6.8 L Neutrophils % 75.3 Lymphocytes % 15.8 Monocytes % 6.4 Eosinophils % 1.7 Basophils % 0.8 - RADIOLOGY Radiology Studies Ordered: Category Date Time Status CERVICAL SPINE CT W/O CONTR [CT] Stat CT Scan 03/27/20 20:[address] WITHOUT CONTRAST [CT] Stat CT Scan 03/27/20 20:[address] WITHOUT CONTRAST [CT] Stat CT Scan 03/27/20 20:[address] W/O CONTRAST [CT] Stat CT Scan 03/27/20 20:33 Taken CHEST X-RAY PORTABLE* [RAD] Stat Radiology 03/27/20 19:54 Taken HIP & PELVIS-LEFT [RAD] Stat Radiology 03/27/20 19:54 Taken - Medications Given in the ED: ED Medications Discontinued Medications Generic Name Dose Route Start Last Admin Trade Name Freq PRN Reason Stop Dose Admin Acetaminophen 1,000 mg 03/27/20 19:55 03/27/20 20:21 Ofirmev Injection - IVPB 03/27/20 19:56 1,000 mg ONCE ONE Administration Lidocaine 1 patch 03/27/20 19:44 03/27/20 20:01 Lidoderm Patch - TP 03/27/20 19:45 1 patch ONCE ONE Administration Morphine Sulfate 2 mg 03/27/20 23:07 03/27/20 23:20 Morphine Sulfate IVPUSH 03/27/20 23:08 2 mg ONCE ONE Administration Ondansetron HCl 4 mg 03/27/20 23:08 03/27/20 23:20 Zofran Injection IVPB 03/27/20 23:09 4 mg ONCE ONE Administration <Grace Agarwal - Last Filed: 03/28/20 00:32> Medical Decision Making - Medical Decision Making 89 YOM h/o diabetes, htn and falls presents after fall - vitals significant for bp in 190s - exam reveals tenderness along left side, no pain with deep inspiration - CT head, CT neck, CT thoracic spine, CT chest and pelvis, CBC, CMP, tylenol and reassess - dispo is likely admit given clinical picture <Jorge Luis Zhu - Last Filed: 03/27/20 20:53> Discharge <Jorge Luis Zhu - Last Filed: 03/27/20 20:53> - Discharge Information Problems reviewed: Yes - Transfer to Acute Care Facility Receiving Facility Name: [facility] <Grace Agarwal - Last Filed: 03/28/20 00:32> - Discharge Information Clinical Impression/Diagnosis: Subdural hematoma Rib fractures Qualifiers: Encounter type: initial encounter Rib fracture type: multiple ribs Fracture typ e: closed Laterality: left Qualified Code(s): S22.42XA - Multiple fractures of ribs, left side, initial encounter for closed fracture Thoracic compression fracture Qualifiers: Encounter type: initial encounter Thoracic vertebra fracture level: T8 Q ualified Code(s): S22.060A - Wedge compression fracture of T7-T8 vertebra, initial encounter for closed fracture Condition: Guarded Disposition: TRANSFER ACUTE CARE/OTHER HOSP
[2020-03-27] MEDS ORDERED: LIDOCAINE 5% TOPICAL PATCH TP ONE (19:44)
[2020-03-27] MEDS ORDERED: LIDOCAINE 5% TOPICAL PATCH ONE (19:47)
[2020-03-27] MEDS ORDERED: ACETAMINOPHEN 1000 MG/100 ML VIAL (NON FORMULARY) IVPB ONE (19:55)
[2020-03-27] MEDS ORDERED: ACETAMINOPHEN INJECTION 100 ML IVPB ONE (20:04)
[2020-03-27 20:29] LABS: BASO % 0.8 % (0-2.0); EOS % 1.7 % (0-4.5); HEMATOCRIT 36.1 % (35.4-49); HEMOGLOBIN 12.2 GM/dL (11.7-16.9); LYMPH % 15.8 % (8-40); MCH 26.8 pg (25.7-33.7); MCHC 33.8 g/dl (32.0-35.9); MEAN CELL VOLUME 79.3 fl (80-96); MEAN PLT VOLUME 6.8 fl (7.5-11.1); MONO % 6.4 % (3.8-10.2); NEUT % 75.3 % (42.8-82.8); PLATELET COUNT 210 K/MM3 (134-434); RBC 4.56 M/mm3 (4.00-5.60); RDW 14.4 % (11.9-15.9); WHITE BLOOD COUNT 8.3 K/mm3 (4.0-10.0)
[2020-03-27 20:49] LABS: ALBUMIN 3.8 g/dl (3.4-5.0); BILIRUBIN,TOTAL 0.2 mg/dL (0.2-1); BLOOD UREA NITROGEN 27.5 mg/dL (7-18); CALCIUM 9.4 mg/dL (8.5-10.1); CREATININE 0.9 mg/dL (0.55-1.3); POTASSIUM 4.3 mmol/L (3.5-5.1); TOT PROT 7.5 g/dl (6.4-8.2)
[2020-03-27] MEDS ORDERED: LIDOCAINE PATCH REMOVAL MC SCH (22:00)
[2020-03-27] MEDS ORDERED: morphine SULFATE 4 MG/ML VIAL IVPUSH ONE (23:07)
[2020-03-27] MEDS ORDERED: ONDANSETRON 4 MG/2 ML VIAL IVPB ONE (23:08)
[2020-03-27] MEDS ORDERED: MORPHINE SULFATE 2 MG/ML VIAL ONE (23:09)
--- NOTE | 2020-03-27 23:24 | PDOC ---
Documentation entered by Daljit Pope SCRIBE, acting as scribe for Katherine Hansen MD. Katherine Hansen MD: This documentation has been prepared by the scribe, Daljit Pope SCRIBE, under my direction and personally reviewed by me in its entirety. I confirm that the documentation accurately reflects all work, treatment, procedures, and medical decision making performed by me. Attending Attestation - Resident Resident Name: MarkoJorge Luis - ED Attending Attestation I have performed the following: I have examined & evaluated the patient, The case was reviewed & discussed with the resident, I agree w/resident's findings & plan, Exceptions are as noted - HPI HPI: 03/27/20 20:52 The patient is an 89 year old male with a significant past medical history of HTN, DM and falls who presents to the emergency department for evaluation s/p mechanical fall tonight. The patient son at bedside reports the patient tripped, causing him to his head and left side. The patient reports back and left side pain. He notes taking Tylenol ten hours ago for restless leg syndrome. Denies LOC. The patient denies chest/abdominal/back pain, cough, and shortness of breath. Denies fever, chills, nausea, vomiting, and/or any GI symptoms. Denies any symptoms. Denies any other symptoms. Allergies: NKDA - Physicial Exam PE: 03/27/20 19:46 GENERAL: Well developed, well nourished. Awake and alert. No acute distress. HEENT: Normocephalic, atraumatic. PERRLA, EOMI. No conjunctival pallor. Sclera are non- icteric. Moist mucous membranes. Oropharynx is clear. NECK: Supple. Full ROM. No JVD. Carotid pulses 2+ and symmetric, without bruits. No thyromegaly. No lymphadenopathy. CARDIOVASCULAR: Regular rate and rhythm. No murmurs, rubs, or gallops. Distal pulses are 2+ and symmetric. PULMONARY: No evidence of respiratory distress. Lungs clear to auscultation bilaterally. No wheezing, rales or rhonchi. ABDOMINAL: Soft. Non-tender. Non-distended. No rebound or guarding. No organomegaly. Normoactive bowel sounds. MUSCULOSKELETAL: low/mid back pain, worse with movement of the left leg EXTREMITIES: No cyanosis. No clubbing. No edema. No calf tenderness. SKIN: Warm and dry. Normal capillary refill. No rashes. No jaundice. NEUROLOGICAL: Alert, awake, appropriate. Cranial nerves 2-12 intact. No deficits to light touch and temperature in face, upper extremities and lower extremities. No motor deficits in the in face, upper extremities and lower extremities. Normal speech. Toes are down-going bilaterally. Pt has hyperreflexia throughout. PSYCHIATRIC: Cooperative. Good eye contact. Appropriate mood and affect. 03/27/20 23:14 - Medical Decision Making 03/27/20 21:43 All labs normal 03/27/20 23:08 Pt is complaining of his restless leg. He states that when he inverts his thigh, he has exquisite back tenderness Pt is A+Ox3, despite the swelling that can be seen on his right brain on CT scan. I am awaiting the brain CT scan read. 03/27/20 23:10 Pt will be admitted for back pain and pain management 03/27/20 23:24 03/27/20 23:48 Patient Name: NANCIE CAMPOS THIS IS A PRELIMINARY REPORT DATE OF SERVICE: 2020-03-27 21:59:04 IMAGES: 250 EXAM: HEAD CT WITHOUT CONTRAST HISTORY: Patient fell COMPARISON: None. FINDINGS: Positive for a right hemispheric subdural hematoma. The hematoma is felt to be acute, subacute, or recent. It is nearly isodense to brain. But this can be due to anemia. The maximum thickness of the subdural hemorrhage is approximately 1.34 cm. There is a resultant subfalcine shift of approximately 6.2 mm. The mass-effect also results in partial compression of the right lateral ventricle. Osseous structures are intact. 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 03/27/20 23:49 Patient Name: NANCIE CAMPOS THIS IS A PRELIMINARY REPORT DATE OF SERVICE: 2020-03-27 22:06:49 IMAGES: 407 EXAM: THORACIC SPINE CT W/O CONTRAST HISTORY: Trauma COMPARISON: None. FINDINGS Positive for a compression fracture of the superior endplate of T8. The age of the fracture is indeterminate but the pattern suggests that it could be recent or acute. No retropulsion. Posterior elements are intact. No other thoracic spine fracture or malalignment. Left rib fractures. Chest abnormalities/trauma will be discussed on the chest CT to follow Patient Name: NANCIE CAMPOS THIS IS A PRELIMINARY REPORT DATE OF SERVICE: 2020-03-27 21:54:18 IMAGES: 240 EXAM: CERVICAL SPINE CT W/O CONTR HISTORY: Patient fell COMPARISON: None. FINDINGS: Degenerative changes. Negative for cervical spine fracture or acute malalignment. Anterolisthesis of C4 on C5 is noted and is felt to be degenerative in nature. 03/27/20 23:51 Patient Name: NANCIE CAMPOS THIS IS A PRELIMINARY REPORT DATE OF SERVICE: 2020-03-27 22:02:44 IMAGES: [id number] EXAM: CHEST CT WITHOUT CONTRAST HISTORY: Trauma COMPARISON: None. FINDINGS: Positive for acute fractures of the left ninth and 10th ribs posteriorly. No pneumothorax or pneumomediastinum. No pulmonary infiltrates/contusions. No pleural effusions. Calcified granuloma right lower lobe. Calcified coronary artery plaque. Fracture T8 is noted. This is described on the CT thoracic spine. Incidental note made of a right renal parapelvic cyst. 03/28/20 04:49 Transfer to the neurosurg service at [facility] Discharge - Discharge Information Problems reviewed: Yes Clinical Impression/Diagnosis: Subdural hematoma Rib fractures Qualifiers: Encounter type: initial encounter Rib fracture type: multiple ribs Fracture type: closed Laterality: left Qualified Code(s): S22.42XA - Multiple fractures of ribs, left side, initial encounter for closed fracture Thoracic compression fracture Qualifiers: Encounter type: initial encounter Thoracic vertebra fracture level: T8 Qualified Code(s): S22.060A - Wedge compression fracture of T7-T8 vertebra, initial encounter for closed fracture Condition: Guarded Disposition: TRANSFER ACUTE CARE/OTHER HOSP - Follow up/Referral - Patient Discharge Instructions - Post Discharge Activity
[2020-03-28 00:02] VITALS: BP 169/69; PULSE 89
[2020-03-28] MEDS ORDERED: levETIRAcetam 500 MG/5 ML INJECTION VIAL IVPB ONE (00:07)
[2020-03-28] MEDS ORDERED: NICARDIPINE 25 MG in DEXTROSE 5%-WATER - 240 ML IVPB SCH (00:15)
== END 2020-03-28 00:25 | disposition short-term general hospital (02) ==
LOC: JER 18:18
PROC: 3E033NZ Introduction of Analgesics, Hypnotics, Sedatives into Peripheral Vein, Percutaneous Approach (ICD-10-PCS; principal; 2020-03-27)
PROC: 3E033GC Introduction of Other Therapeutic Substance into Peripheral Vein, Percutaneous Approach (ICD-10-PCS; 2020-03-27)
DX: S22.42XA Multiple fractures of ribs, left side, initial encounter for closed fracture (principal)
CPT/HCPCS: 36415; 70450-TC; 71045-TC-FY; 71250-TC; 72125-TC; 72128-TC; 73523-TC-FY; 80053; 85025; 99285-25; J0131